=== PATIENT | male | born 1965 ===

== ENCOUNTER 2020-05-01 18:18 | Emergency (ER) | payer OTHER ==
[~2020-05-01] VITALS: Ht 177.8 cm; Wt 90.7 kg
[2020-05-01] MEDS ORDERED: SODIUM CHLORIDE 0.9% 1,000 ML IVB ONE (18:28)
[2020-05-01] MEDS ORDERED: HALOPERIDOL LACTATE 5 MG/ML INJ VIAL IM ONE (18:30)
[2020-05-01] MEDS ORDERED: diphenhdrAMINE HCL 50 MG/1 ML VL IM ONE (18:30)
[2020-05-01] MEDS ORDERED: LORazepam 2MG/ML-1ML VIAL IM ONE (18:30)
[2020-05-01 21:34] VITALS: BP 139/84
[2020-05-01 21:50] LABS: Basophils # (auto) 0.1 10 ^3/uL (0-0.2); Basophils % (auto) 0.8 % (0.0-2.0); Eosinophils # (auto) 0.3 10 ^3/uL (0-0.8); Eosinophils % (auto) 2.2 % (0.0-7.0); Hematocrit 41.6 % (41.0-53.0); Hemoglobin 14.1 g/dL (13.5-17.5); Lymphocytes # (auto) 2.8 10 ^3/uL (0.4-5.4); Lymphocytes % (auto) 19.1 % (10.0-50.0); Mean Corpuscular Hemoglobin 31.4 pg (28.0-32.0); Mean Corpuscular Volume 92.2 fL (80.0-100.0); Neutrophils # (auto) 10.4 10 ^3/uL (1.6-8.6); Neutrophils % (auto) 70.9 % (37.0-80.0); Nucleated Red Blood Cells % 0.1 %; Platelet Count (auto) 358 10^3/uL (140-450); Red Blood Cells 4.51 10^6/uL (4.5-5.90); Red Cell Distribution Width 13.1 % (11.8-14.3); White Blood Cell 14.7 10^3/uL (4.4-10.8)
[2020-05-01 22:08] LABS: Chloride 107 mmol/L (98-107); Potassium 3.8 mmol/L (3.5-5.1); Sodium 138 mmol/L (136-145)
[2020-05-01 22:11] LABS: Alanine Aminotransferase 43 U/L (16-61); Albumin 3.7 g/dL (3.4-5.0); Anion Gap 6 (5-15); Aspartate Aminotransferase 27 U/L (15-37); BUN/Creatinine Ratio 15.7; Blood Urea Nitrogen 18 mg/dL (7-18); Calcium 8.5 mg/dL (8.5-10.1); Carbon Dioxide 25 mmol/L (21-32); GFR African American 85 mL/min; GFR Non-African American 70 mL/min; Glucose 78 mg/dL (74-106); Magnesium 2.4 mg/dL (1.6-2.6)
[2020-05-01 22:14] LABS: Acetaminophen < 2.0 ug/mL (10-30); Alkaline Phosphatase 159 U/L (45-117); Bilirubin, Total 0.3 mg/dL (0.2-1.0); Salicylate 5.9 mg/dL (2.8-20.0); Total Protein 7.1 g/dL (6.4-8.2)
[2020-05-01 22:15] LABS: Blood Alcohol < 3.0 mg/dL (0-5)
[2020-05-01 23:15] LABS: Urine Bacteria NONE SEEN /hpf (None Seen); Urine Blood Negative /uL (Negative); Urine Mucus FEW (None Seen); Urine Specific Gravity 1.021 (1.001-1.035); Urine WBC <1 /hpf (0 - 3)
[2020-05-01 23:29] LABS: Amphetamine Screen, Urine NEGATIVE (NEGATIVE); Barbiturate Scree,Urine NEGATIVE (NEGATIVE); Benzodiazephine Screen, Urine NEGATIVE (NEGATIVE); Cannabinoid Screen, Urine NEGATIVE (NEGATIVE); Cocaine Screen, Urine NEGATIVE (NEGATIVE); Opiate Scree,Urine NEGATIVE (NEGATIVE); Phencyclidine Screen, Urine NEGATIVE (NEGATIVE)
[2020-05-01 23:41] LABS: Alcohol, Urine < 3.0 mg/dL (0-10)
[2020-05-02] MEDS ORDERED: diphenhdrAMINE HCL 50 MG/1 ML VL IV ONE (03:45)
[2020-05-02] MEDS ORDERED: LORazepam 2MG/ML-1ML VIAL IV ONE (03:45)
[2020-05-02] MEDS ORDERED: risperiDONE 1 MG TAB PO ONE (04:45)
[2020-05-02] MEDS ORDERED: NICOTINE 14 MG/24HR TOPICAL PATCH TD ONE (11:45)
== END 2020-05-02 12:48 | disposition left against medical advice (07) ==
LOC: EDBD 18:18 → ER 18:18
DX: F20.9 Schizophrenia, unspecified (principal); F17.210 Nicotine dependence, cigarettes, uncomplicated; Z20.828 Contact with and (suspected) exposure to other viral communicable diseases
CPT/HCPCS: 36415; 70450; 80053; 80307; 80320; 80329; 81001; 83735; 85025; 87070; 87804; 87880; 93005; 96361; 96372; 96374; 96375; 99285; C9803; J1200; J1630; J2060; J7030; U0003

== ENCOUNTER 2021-05-28 06:59 | Emergency (ER) | payer OTHER ==
[~2021-05-28] VITALS: Ht 182.9 cm; Wt 99.8 kg
[2021-05-28] MEDS ORDERED: KETOROLAC TROMETH 60MG/2ML VIAL IM ONE (07:30)
[2021-05-28] MEDS ORDERED: CARISOPRODOL 350 MG TAB PO ONE (07:30)
[2021-05-28 08:03] VITALS: BP 130/68
== END 2021-05-28 10:38 | disposition home or self-care (01) ==
LOC: ER 06:59 → EDBD 06:59 → ER 10:30
DX: S33.5XXA Sprain of ligaments of lumbar spine, initial encounter (principal); F17.210 Nicotine dependence, cigarettes, uncomplicated; F15.10 Other stimulant abuse, uncomplicated; X58.XXXA Exposure to other specified factors, initial encounter; Y93.89 Activity, other specified; Y92.89 Other specified places as the place of occurrence of the external cause; Y99.8 Other external cause status
CPT/HCPCS: 72100; 96372; 99283; J1885